=== PATIENT | female | born 1990 | race Caucasian/White ===

== ENCOUNTER 2017-03-26 19:45 | Emergency (ER) | payer BC, MEDICAID ==
[2017-03-26] MEDS ORDERED: LIDOCAINE HCL 20 ML VIAL ONE (20:58)
[2017-03-26] MEDS ORDERED: AMOX TR/POTASSIUM CLAVULANATE 875 MG TABLET PO ONE (22:41)
[2017-03-26] MEDS ORDERED: AMOX TR/POTASSIUM CLAVULANATE 875 MG TABLET ONE (22:42)
--- NOTE | 2017-03-26 22:43 | ERNOTE ---
Medical Problem HPI - General Chief Complaint: Foreign Body Time Seen by Provider: 03/26/17 22:14 Source: patient Exam Limitations: no limitations - Immun/Allergies/Home Medications Immunizations: IMMUNIZATION HX Immunizations Up to Date Yes History of Influenza Vaccine Yes Hx Pneumococcal Vaccination No Allergies/Adverse Reactions: Allergies codeine [Codeine] Adverse Reaction (Intermediate, Verified 12/04/15 19:26) Vomiting Home Medications: HOME MEDICATIONS Levothyroxine Sodium [Synthroid] 75 mcg PO DAILY 12/04/15 [Last Taken 02/14/16 08:00] Amox Tr/Potassium Clavulanate [Augmentin 875-125 Tablet] 875 mg PO Q12H #6 tab 03/26/17 [Last Taken Unknown] - History of Present History Narrative: fishhook caught in right index finger Timing: constant Modifying Factors - (Improves): Present: immobilization Modifying Factors - (Worsens): Present: movement Review of Systems - Review of Systems Constitutional: Present: no symptoms reported EYE: Present: no symptoms reported ENT: Present: no symptoms reported Respiratory: Present: no symptoms reported Cardiology: Present: no symptoms reported Gastrointestinal/Abdominal: Present: no symptoms reported Genitourinary: Present: no symptoms reported Musculoskeletal: Present: See HPI Skin: Present: See HPI Neurological: Present: no symptoms reported Endocrine: Present: no symptoms reported Hematologic/Lymphatic: Present: no symptoms reported Psych: Present: no symptoms reported - Patient's Past Medical History Patient History - Medical: GERD, Hypothyroidism, Obesity Patient History - Cardiac/Respiratory: No pertinent hx Patient History - Cancer: No Hx of Cancer Patient History - Surgical Procedures: , Tubal Ligation Patient History - Other: None - Social History Living Situations: home Abuse History: No History of abuse Psych History: No pertinent hx Does anyone smoke in the home?: No Smoking Status: Never smoker Alcohol Use: occasionally Drug Use: none - Immunizations Immunizations Up to Date: Yes Hx Pneumococcal Vaccination: No History of Influenza Vaccine: Yes Physical Exam - Physical Exam General Appearance: Present: wd/wn, alert, no apparent distress Neck: Present: normal inspection, nontender Respiratory: Present: no respiratory distress Peripheral Pulses: N=norm/S=strong/W=weak/B=bound/A=absent: Radial (R): Normal Extremity Exam: Present: normal range of motion, no edema Neurological Exam: Present: alert, oriented, normal mood/affect, no motor/ sensory deficits Skin Exam: Present: normal color, warm/dry, other - Single fishing hook in pad of right index finger. hook in just past the fede. No bony envolvement. Hemostasis complete ED Progress - Vital Signs Vital Signs: Vital Signs 03/26/17 20:06 Temperature 37.3 C Pulse Rate 82 Respiratory 14 Rate Blood Pressure 131/86 O2 Sat by Pulse 100 Oximetry - Progress/Reassessment Chief Complaint: Foreign Body Procedures Location: RIGHT INDEX FINGER How removed: Other - fishook removed with the "over the fede" needle technique. Finger anesthetized with 2ml 2 % lidocaine in a ring block. A 16 g needle was slid down the hook and used to cover the fede and the hook was removed. There was mild bleeding for a short time and hemostasis was regained spontaneously. Complications: Pt elle procedure well Departure - Departure Clinical Impression: Foreign body (FB) in soft tissue Disposition: Home self-care Condition: Good Instructions: Laceration Care, Adult, [id number] Additional Instructions: Wash wound with soap and water twice a day. See your regular doctor if worsening Referrals: Dixie Mast FNP [Primary Care Provider] - Prescriptions: Amox Tr/Potassium Clavulanate [Augmentin 875-125 Tablet] 875 mg PO Q12H #6 tab
[2017-03-26 22:51] VITALS: BP 127/79
== END 2017-03-26 22:45 | disposition home or self-care (01) ==
LOC: ER 19:45
DX: S60.450A Superficial foreign body of right index finger, initial encounter (principal); M79.5 Residual foreign body in soft tissue; X58.XXXA Exposure to other specified factors, initial encounter; Y93.89 Activity, other specified; Y92.838 Other recreation area as the place of occurrence of the external cause